=== PATIENT | male | born 1970 | race African-American/Black ===

== ENCOUNTER 2018-08-18 13:48 | Inpatient (IN) ==
[2018-08-18] MEDS ORDERED: Ketorolac Inj 30 MG/ML (IVP) Vial IV.PUSH ONE (15:39)
--- NOTE | 2018-08-18 15:55 | ED ---
HPI General Chief complaint: Skin/Abscess/Foreign Body Stated complaint: Groin Area complaint Time Seen by Provider: 08/18/18 14:45 Source: patient Mode of arrival: ambulatory Limitations: no limitations History of Present Illness HPI narrative: 48-year-old male presents to the emergency department with complaint of an abscess to his lower abdomen that started out at the beginning of the week and has worsened over the past 2 days. Denies drainage. Denies fever, vomiting, abdominal pain. Has history of abscesses. Says he is in no pain. Has taken Tylenol for symptom management. No other treatments tried. No known aggravating or relieving factors. Denies significant past medical history. No primary care provider. Denies allergies. Has no other medical complaints. No other modifying factors or associated signs and symptoms. Related Data Home Medications Medication Instructions Recorded Confirmed No Known Home Medications 08/18/18 08/18/18 Previous Rx's Medication Instructions Recorded clindamycin HCl 600 mg PO BID 10 Days #40 cap 08/20/18 doxycycline hyclate 100 mg PO BID 10 Days #40 tab 08/20/18 metformin 500 mg PO DAILY 30 Days #30 tab 08/20/18 Allergies Allergy/AdvReac Type Severity Reaction Status Date / Time No Known Allergies Allergy Verified 08/18/18 13:57 Review of Systems ROS: all other systems reviewed are negative [facility] Medical History Medical History HTN (hypertension) (Acute) Social History Social History Substance History: Active Abuse Second Hand Smoke Exposure: No Smoking Status: Never smoker How Often Do You Have a Drink Containing Alcohol: Monthly or less Recent Travel in [facility] within the Last 8 Weeks: No Recent Out of Country Travel within the Last 8 Weeks: No Immunization History Tetanus Immunization: Unsure Exam Narrative Exam Narrative: GENERAL: Well-nourished, well-developed black male patient, in no acute distress; afebrile, nontoxic-appearing SKIN: There is an indurated area to the lower mid abdomen/pelvic region which measures about 9 cm in diameter. There is approximately a 1 cm area of fluctuance palpated and the rest is indurated. No drainage. HEAD: Atraumatic. Normocephalic. EYES: Pupils equal and round. No scleral icterus. No injection or drainage. ENT: Mucosa pink and moist. Airway patent. NECK: Trachea midline. CARDIOVASCULAR: Regular rate. RESPIRATORY: No accessory muscle use. GASTROINTESTINAL: Obese. MUSCULOSKELETAL: No obvious deformities. No clubbing. No cyanosis. No edema. NEUROLOGICAL: Awake and alert. Oriented 3. No obvious cranial nerve deficits. Motor grossly within normal limits. Normal speech. PSYCHIATRIC: Appropriate mood and affect; insight and judgment normal. Course Initial Documented Vital Signs Temperature 97.2 F L 08/18/18 13:54 Pulse Rate 92 H 08/18/18 13:54 Respiratory Rate 20 08/18/18 13:54 Blood Pressure 149/73 H 08/18/18 13:54 Pulse Oximetry 98 08/18/18 13:54 Last Documented Vital Signs Temperature 98.2 F 08/20/18 08:00 Pulse Rate 84 08/20/18 08:00 Respiratory Rate 20 08/20/18 08:00 Blood Pressure 151/74 H 08/20/18 08:00 Pulse Oximetry 96 08/20/18 08:00 Medical Decision Making NADJA Attestation NADJA supervised visit: Yes Attestation: I, Dr. Franco, have reviewed the advance practice practitioner's documentation and am in agreement, met with the patient face to face, made the diagnosis, and the medical decision making was done by me. *My assessment and Findings: abscess vs. cellulitis 48yo M with suprapubic pain and swelling for 1 week. There is an induration over pubic bone about 12 cm by 9cm. There is a small area of fluctuance on the superior area of the induration. No crepitus, no tenderness to palpation in bilateral testes. It is difficult the access what deep the infection is and due to the location of the infection, will obtain CT a/p with IV contrast. Denies any fever, chest pain, sob, n/v, abdominal pain, focal weakness or numbness. Labs reviewed, no leukocytosis. H/H normal. CT pending at this time. My GEOCHEMICAL LABORATORY TECHNICIAN will follow up on it and admit if there is any signs of abscess. [facility] Narrative Medical decision making narrative: 48-year-old male with large indurated abscess to the lower mid abdomen/pelvic region. Dr. Franco evaluated the patient and plan of care discussed. CT abdomen/pelvis, CBC, CMP, IV, Toradol ordered. 1747: CBC unremarkable. CMP unremarkable. 1806: CT abdomen/pelvis conclude: significant induration in the anterior body wall of the left pelvis. There does appear to be a small possible abscess tracking underneath the skin at the level of the beginning of the left pannus. Some surrounding reactive type lymph nodes. Discussed CT findings with the patient. Clindamycin 600 mg IV ordered. Call placed for admission. 182: I spoke with Dr. Royal, resident MD and report given for admission. Medical Screen Exam Complete: Yes Emergency Medical Condition: Yes Differential Diagnosis Differential Diagnosis: Abscess of skin of abdomen, Lab Data Result diagrams: 08/20/18 09:57 08/20/18 09:57 Lab Results 08/18/18 08/18/18 08/18/18 Range/Units 15:50 15:50 15:50 WBC 9.2 (4.0-11.0) th/mm3 RBC 4.57 (4.50-5.90) mil/mm3 Hgb 13.6 (13.0-17.0) gm/dL Hct 39.7 (39.0-51.0) % MCV 86.8 (80.0-100.0) fL MCH 29.7 (27.0-34.0) pg MCHC 34.2 (32.0-36.0) % RDW 14.1 (11.6-17.2) % Plt Count 267 (150-450) th/mm3 MPV 8.6 (7.0-11.0) fL Neut % (Auto) 68.7 (16.0-70.0) % Lymph % (Auto) 18.8 (9.0-44.0) % Gillespie % (Auto) 10.2 H (0.0-8.0) % Eos % (Auto) 1.7 (0.0-4.0) % Baso % (Auto) 0.6 (0.0-2.0) % Neut # (Auto) 6.3 (1.8-7.7) th/mm3 Lymph # (Auto) 1.7 (1.0-4.8) th/mm3 Gillespie # (Auto) 0.9 (0.0-0.9) th/mm3 Eos # (Auto) 0.2 (0.0-0.4) th/mm3 Baso # (Auto) 0.1 (0.0-0.2) th/mm3 WBC Differential . Differential Comment Auto diff final PT 11.1 (9.8-11.6) sec INR 1.1 Ratio APTT 29.5 (24.3-30.1) sec Sodium 135 L (136-145) meq/L Potassium 3.9 (3.5-5.1) meq/L Chloride 100 (98-107) meq/L Carbon Dioxide 28.8 (21.0-32.0) meq/L Anion Gap 6 (5-15) meq/L BUN 7 (7-18) mg/dL Creatinine 1.02 (0.60-1.30) mg/dL Estimated GFR Greater than 89 (>89) mL/min Random Glucose 90 (74-106) mg/dL Hemoglobin A1c (4.3-6.0) % Calcium 8.2 L (8.5-10.1) mg/dL Total Bilirubin 1.0 (0.2-1.0) mg/dL AST 19 (15-37) U/L ALT 34 (12-78) U/L Alkaline Phosphatase 109 (45-117) U/L Total Protein 8.5 H (6.4-8.2) g/dL Albumin 3.0 L (3.4-5.0) g/dL 08/19/18 08/19/18 08/20/18 Range/Units 07:04 07:04 09:57 WBC 9.6 (4.0-11.0) th/mm3 RBC 4.70 (4.50-5.90) mil/mm3 Hgb 13.8 (13.0-17.0) gm/dL Hct 41.9 (39.0-51.0) % MCV 89.3 (80.0-100.0) fL MCH 29.4 (27.0-34.0) pg MCHC 32.9 (32.0-36.0) % RDW 14.0 (11.6-17.2) % Plt Count 283 (150-450) th/mm3 MPV 8.7 (7.0-11.0) fL Neut % (Auto) 71.2 H (16.0-70.0) % Lymph % (Auto) 17.2 (9.0-44.0) % Gillespie % (Auto) 9.6 H (0.0-8.0) % Eos % (Auto) 1.7 (0.0-4.0) % Baso % (Auto) 0.3 (0.0-2.0) % Neut # (Auto) 6.8 (1.8-7.7) th/mm3 Lymph # (Auto) 1.6 (1.0-4.8) th/mm3 Gillespie # (Auto) 0.9 (0.0-0.9) th/mm3 Eos # (Auto) 0.2 (0.0-0.4) th/mm3 Baso # (Auto) 0.0 (0.0-0.2) th/mm3 WBC Differential . Differential Comment Auto diff final PT (9.8-11.6) sec INR Ratio APTT (24.3-30.1) sec Sodium 138 (136-145) meq/L Potassium 3.2 L (3.5-5.1) meq/L Chloride 101 (98-107) meq/L Carbon Dioxide 27.8 (21.0-32.0) meq/L Anion Gap 9 (5-15) meq/L BUN 8 (7-18) mg/dL Creatinine 0.93 (0.60-1.30) mg/dL Estimated GFR Greater than 89 (>89) mL/min Random Glucose 107 H (74-106) mg/dL Hemoglobin A1c 6.3 H (4.3-6.0) % Calcium 8.3 L (8.5-10.1) mg/dL Total Bilirubin 0.8 (0.2-1.0) mg/dL AST 18 (15-37) U/L ALT 35 (12-78) U/L Alkaline Phosphatase 107 (45-117) U/L Total Protein 8.1 (6.4-8.2) g/dL Albumin 2.9 L (3.4-5.0) g/dL 08/20/18 Range/Units 09:57 WBC (4.0-11.0) th/mm3 RBC (4.50-5.90) mil/mm3 Hgb (13.0-17.0) gm/dL Hct (39.0-51.0) % MCV (80.0-100.0) fL MCH (27.0-34.0) pg MCHC (32.0-36.0) % RDW (11.6-17.2) % Plt Count (150-450) th/mm3 MPV (7.0-11.0) fL Neut % (Auto) (16.0-70.0) % Lymph % (Auto) (9.0-44.0) % Gillespie % (Auto) (0.0-8.0) % Eos % (Auto) (0.0-4.0) % Baso % (Auto) (0.0-2.0) % Neut # (Auto) (1.8-7.7) th/mm3 Lymph # (Auto) (1.0-4.8) th/mm3 Gillespie # (Auto) (0.0-0.9) th/mm3 Eos # (Auto) (0.0-0.4) th/mm3 Baso # (Auto) (0.0-0.2) th/mm3 WBC Differential Differential Comment PT (9.8-11.6) sec INR Ratio APTT (24.3-30.1) sec Sodium 138 (136-145) meq/L Potassium 3.7 (3.5-5.1) meq/L Chloride 102 (98-107) meq/L Carbon Dioxide 28.1 (21.0-32.0) meq/L Anion Gap 8 (5-15) meq/L BUN 7 (7-18) mg/dL Creatinine 1.01 (0.60-1.30) mg/dL Estimated GFR Greater than 89 (>89) mL/min Random Glucose 116 H (74-106) mg/dL Hemoglobin A1c (4.3-6.0) % Calcium 8.4 L (8.5-10.1) mg/dL Total Bilirubin (0.2-1.0) mg/dL AST (15-37) U/L ALT (12-78) U/L Alkaline Phosphatase (45-117) U/L Total Protein (6.4-8.2) g/dL Albumin (3.4-5.0) g/dL Imaging Data Radiologist's impression: Abdomen/Pelvis CT 08/18/18 15:39 CONCLUSION: 1. Significant induration in the anterior body wall of the left pelvis. There does appear to be a small possible abscess tracking underneath the skin at the level of the beginning of the left pannus. Some surrounding reactive type lymph nodes. Discharge Plan Discharge Disposition Patient Disposition: 30 Still Patient Discharge Condition Condition: Stable Discharge Order Discharge Orders: Discharge Order (Routine); Ordered 08/20/18 Ordered By: Allyn Royal Discharge Details Anticipated Discharge Date: 08/20/18 Diagnosis: Abscess of pelvis Physicians Team ED Provider: Suzette Franco ED Midlevel Provider: Haley Ghosh Primary Care Provider: Primary Care Shyla Dutta Attending Provider: Andrea Gonzalez Status ED Status: Left Department Discharge Information Discharge Date/Time: 08/19/18 01:01
[2018-08-18 16:18] LABS: Baso # (Auto) 0.1 th/mm3 (0.0-0.2); Baso % (Auto) 0.6 % (0.0-2.0); Eos # (Auto) 0.2 th/mm3 (0.0-0.4); Eos % (Auto) 1.7 % (0.0-4.0); Hematocrit 39.7 % (39.0-51.0); Hemoglobin 13.6 gm/dL (13.0-17.0); Lymph # (Auto) 1.7 th/mm3 (1.0-4.8); Lymph % (Auto) 18.8 % (9.0-44.0); Mean Corpuscular HGB Conc 34.2 % (32.0-36.0); Mean Corpuscular Hemoglobin 29.7 pg (27.0-34.0); Mean Corpuscular Volume 86.8 fL (80.0-100.0); Mean Platelet Volume 8.6 fL (7.0-11.0); Mono # (Auto) 0.9 th/mm3 (0.0-0.9); Mono % (Auto) 10.2 % (0.0-8.0); Neut # (Auto) 6.3 th/mm3 (1.8-7.7); Neut % (Auto) 68.7 % (16.0-70.0); Platelet Count 267 th/mm3 (150-450); Red Blood Count 4.57 mil/mm3 (4.50-5.90); Red Cell Distribution Width 14.1 % (11.6-17.2); White Blood Count 9.2 th/mm3 (4.0-11.0)
[2018-08-18 16:27] LABS: Activated Partial Thrombo Time 29.5 sec (24.3-30.1); INR 1.1 Ratio; Prothrombin Time 11.1 sec (9.8-11.6)
[2018-08-18 16:36] LABS: Alkaline Phosphatase 109 U/L (45-117); Total Protein 8.5 g/dL (6.4-8.2)
[2018-08-18 16:41] LABS: Alanine Aminotransferase 34 U/L (12-78); Anion Gap 6 meq/L (5-15); Aspartate Aminotransferase 19 U/L (15-37); Blood Urea Nitrogen 7 mg/dL (7-18); Calcium 8.2 mg/dL (8.5-10.1); Carbon Dioxide 28.8 meq/L (21.0-32.0); Chloride 100 meq/L (98-107); Glomerular Filtration Rate Greater Than 89 mL/min (>89); Glucose,Random 90 mg/dL (74-106); Sodium 135 meq/L (136-145)
[2018-08-18 16:42] LABS: Potassium 3.9 meq/L (3.5-5.1)
--- NOTE | 2018-08-18 17:53 | CT ---
EXAM DATE: 08/18/2018 5:46 PM EDT AGE/SEX: 48 years / Male INDICATIONS: Low abdominal pain with possible abscess. CLINICAL DATA: This is the patient's initial encounter. Patient reports that signs and symptoms have been present for 1 day and indicates a pain score of 6/10. MEDICAL/SURGICAL HISTORY: Hypertension. None. ORAL CONTRAST: No oral contrast ingested. RADIATION DOSE: 39.88 CTD (mGy) ; Patient body habitus COMPARISON: [facility] [place], CT ABDOMEN & PELVIS W CONTRAST, 05/30/2018. . TECHNIQUE: Multiple contiguous axial images were obtained through the abdomen and pelvis following b olus infusion of 97 ml Omnipaque 350 (iohexol) nonionic water-soluble contrast as a single exam dos e. No oral contrast ingested. Using automated exposure control and adjustment of the mA and/or kV ac cording to patient size, radiation dose was kept as low as reasonably achievable to obtain optimal di agnostic quality images. DICOM format image data is available electronically for review and comparis on. FINDINGS: Lower Lungs: The visualized lower lungs are clear. Liver: The liver has a homogeneous density without space-occupying lesion. There is no dilation of th e biliary tree. Spleen: Homogeneous density without enlargement. Pancreas: Unremarkable without mass or calcification. Kidneys: Normal in size and shape. No evidence of mass or hydronephrosis. Adrenal Glands: Unremarkable. Aorta: The aorta and proximal iliac vessels are grossly unremarkable without aneurysmal dilation. Bowel/Mesentery: The bowel loops are grossly unremarkable. The cecum and sigmoid colon have a normal configuration. Abdominal Wall: There is an impressive amount of induration and swelling involving the anterior body wall in the left side of the pelvis. The induration measures 7.7 cm across. I do see a central drain able fluid collection measuring 2.7 cm across. It is directly deep to the skin at the bottom portion of the left pannus. There are numerous adjacent lymph nodes. The induration and swelling extends to t he anterior margin of the left rectus muscle but I don't see any definite muscular enlargement. The c ellulitis extends to the upper part of the scrotum. Retroperitoneum: No evidence of adenopathy in the Retrocrural, para-aortic, or deep pelvic regions. Bladder: Contours are smooth. Reproductive Organs: No abnormal masses or calcifications seen. Inguinal: The inguinal region is unremarkable without evidence of adenopathy. Bony Structures: Unremarkable. CONCLUSION: 1. Significant induration in the anterior body wall of the left pelvis. There does appear to be a sm all possible abscess tracking underneath the skin at the level of the beginning of the left pannus. S ome surrounding reactive type lymph nodes. Electronically signed by: Jorge Louis MD 08/18/2018 5:51 PM EDT
[2018-08-18] MEDS ORDERED: Clindamycin 600 mg/NS Premix 600 MG/50 ML PIGGYBACK IV.SIG SCH (18:15)
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
[2018-08-18] MEDS ORDERED: Bisacodyl 10 MG Supp RECTAL PRN (20:47)
[2018-08-19] MEDS: Acetaminophen 325 MG Tablet PO PRN ×3 (00:32→20:29)
[2018-08-19] MEDS: Clindamycin 900 mg/NS Premix 900 MG/50 ML PIGGYBACK IV.SIG SCH ×3 (01:17→17:46)
[2018-08-19] MEDS: Nystatin 100,000 UNITS/GM Powder 15 GM Bottle TOPICAL SCH ×5 (01:18→20:26)
[2018-08-19 08:10] LABS: Albumin 2.9 g/dL (3.4-5.0); Anion Gap 9 meq/L (5-15); Aspartate Aminotransferase 18 U/L (15-37); Blood Urea Nitrogen 8 mg/dL (7-18); Calcium 8.3 mg/dL (8.5-10.1); Carbon Dioxide 27.8 meq/L (21.0-32.0); Chloride 101 meq/L (98-107); Glomerular Filtration Rate Greater Than 89 mL/min (>89); Glucose,Random 107 mg/dL (74-106); Potassium 3.2 meq/L (3.5-5.1); Sodium 138 meq/L (136-145)
[2018-08-19 08:16] LABS: Alanine Aminotransferase 35 U/L (12-78); Alkaline Phosphatase 107 U/L (45-117); Total Protein 8.1 g/dL (6.4-8.2)
--- NOTE | 2018-08-19 11:06 | P.PNFP ---
Subjective Interval history: This is a 48 year old male admitted for cellulitis of anterior abdominal wall and posterior scalp. Patient seen and examined this morning with at bedside. Patient states that he is feeling much better this morning. He states that the infected areas are very itchy despite the nystatin powder, but otherwise are less painful and not as swollen compared to admission. Denies fever, chills, nausea, vomiting, diarrhea or rash. <Kami Tidwell - 08/19/18 11:07> Results - Labs Result diagrams: 08/18/18 15:50 08/19/18 07:04 <Andrea Gonzalez - 08/19/18 14:25> Abnormal lab results 08/18/18 08/18/18 08/19/18 Range/Units 15:50 15:50 07:04 [place] % (Auto) 10.2 H (0.0-8.0) % Sodium 135 L (136-145) meq/L Potassium 3.2 L (3.5-5.1) meq/L Random Glucose 107 H (74-106) mg/dL Calcium 8.2 L 8.3 L (8.5-10.1) mg/dL Total Protein 8.5 H (6.4-8.2) g/dL Albumin 3.0 L 2.9 L (3.4-5.0) g/dL Short CBC 08/18/18 Range/Units 15:50 WBC 9.2 (4.0-11.0) th/mm3 Hgb 13.6 (13.0-17.0) gm/dL Hct 39.7 (39.0-51.0) % Plt Count 267 (150-450) th/mm3 BMP 08/18/18 08/19/18 15:50 07:04 Sodium 135 L 138 Potassium 3.9 3.2 L Chloride 100 101 Carbon Dioxide 28.8 27.8 BUN 7 8 Creatinine 1.02 0.93 Calcium 8.2 L 8.3 L Liver Function 08/18/18 08/19/18 Range/Units 15:50 07:04 Total Bilirubin 1.0 0.8 (0.2-1.0) mg/dL AST 19 18 (15-37) U/L ALT 34 35 (12-78) U/L Alkaline Phosphatase 109 107 (45-117) U/L Albumin 3.0 L 2.9 L (3.4-5.0) g/dL <Andrea Gonzalez - 08/19/18 14:25> Abnormal lab results 08/18/18 08/18/18 08/19/18 Range/Units 15:50 15:50 07:04 [place] % (Auto) 10.2 H (0.0-8.0) % Sodium 135 L (136-145) meq/L Potassium 3.2 L (3.5-5.1) meq/L Random Glucose 107 H (74-106) mg/dL Calcium 8.2 L 8.3 L (8.5-10.1) mg/dL Total Protein 8.5 H (6.4-8.2) g/dL Albumin 3.0 L 2.9 L (3.4-5.0) g/dL Short CBC 08/18/18 Range/Units 15:50 WBC 9.2 (4.0-11.0) th/mm3 Hgb 13.6 (13.0-17.0) gm/dL Hct 39.7 (39.0-51.0) % Plt Count 267 (150-450) th/mm3 BMP 08/18/18 08/19/18 15:50 07:04 Sodium 135 L 138 Potassium 3.9 3.2 L Chloride 100 101 Carbon Dioxide 28.8 27.8 BUN 7 8 Creatinine 1.02 0.93 Calcium 8.2 L 8.3 L Liver Function 08/18/18 08/19/18 Range/Units 15:50 07:04 Total Bilirubin 1.0 0.8 (0.2-1.0) mg/dL AST 19 18 (15-37) U/L ALT 34 35 (12-78) U/L Alkaline Phosphatase 109 107 (45-117) U/L Albumin 3.0 L 2.9 L (3.4-5.0) g/dL <Kami Tidwell - 08/19/18 11:06> - Imaging Impressions Abdomen/Pelvis CT 08/18/18 15:39 CONCLUSION: 1. Significant induration in the anterior body wall of the left pelvis. There does appear to be a small possible abscess tracking underneath the skin at the level of the beginning of the left pannus. Some surrounding reactive type lymph nodes. <Andrea Gonzalez - 08/19/18 14:25> Impressions Abdomen/Pelvis CT 08/18/18 15:39 CONCLUSION: 1. Significant induration in the anterior body wall of the left pelvis. There does appear to be a small possible abscess tracking underneath the skin at the level of the beginning of the left pannus. Some surrounding reactive type lymph nodes. <Kami Tidwell - 08/19/18 11:06> Physical Exam Vital signs: Vital Signs 08/18/18 18:30 08/19/18 00:00 08/19/18 04:00 Temperature 98.2 F 98.1 F Pulse Rate 82 87 84 Respiratory Rate 16 16 16 Blood Pressure 141/82 H 163/92 H 158/90 H Pulse Oximetry 94 L 99 99 08/19/18 08:00 Temperature 98.6 F Pulse Rate 85 Respiratory Rate 20 Blood Pressure 137/80 Pulse Oximetry 97 Intake & Output 08/18/18 08/19/18 08/19/18 18:59 06:59 18:59 Intake Total 50 / 50 50 / 50 50 / 50 Balance 50 / 50 50 / 50 50 / 50 Weight 139 kg 138.6 kg Intake: IV 50 / 50 50 / 50 50 / 50 Cleocin 600 mg/NS Premix 600 mg 50 / 50 In 50 ml @ 100 mls/hr IV.SIG Q8H [facility] Rx#:[id number] Cleocin 900 mg/NS Premix 900 mg 50 / 50 50 / 50 In 50 ml @ 100 mls/hr IV.SIG Q8H [facility] Rx#:[id number] Other: Weight On Admission 139 kg <Andrea Gonzalez - 08/19/18 14:25> Vital Signs 08/18/18 13:54 08/18/18 18:30 08/19/18 00:00 Temperature 97.2 F L 98.2 F Pulse Rate 92 H 82 87 Respiratory Rate 20 16 16 Blood Pressure 149/73 H 141/82 H 163/92 H Pulse Oximetry 98 94 L 99 08/19/18 04:00 Temperature 98.1 F Pulse Rate 84 Respiratory Rate 16 Blood Pressure 158/90 H Pulse Oximetry 99 Intake & Output 08/18/18 08/19/18 08/19/18 18:59 06:59 18:59 Intake Total 50 / 50 50 / 50 Balance 50 / 50 50 / 50 Weight 139 kg 138.6 kg Intake: IV 50 / 50 50 / 50 Cleocin 600 mg/NS Premix 600 mg 50 / 50 In 50 ml @ 100 mls/hr IV.SIG Q8H [facility] Rx#:[id number] Cleocin 900 mg/NS Premix 900 mg 50 / 50 In 50 ml @ 100 mls/hr IV.SIG Q8H [facility] Rx#:[id number] Other: Weight On Admission 139 kg <Kami Tidwell 08/19/18 11:06> Narrative: GENERAL: Obese gentleman sitting up in bed comfortably. SKIN: 4x4 cm circular area of induration and redness at the back of the head in the lower occipital region. Area under the pannus is lichenified. A small white lesion about 2 cm in diameter is visible. Surrounding it, at the left lower abdomen bordering the groin region, there is a 8x6 cm area of induration. Surrounding swelling had receded from borders marked on admission. Two small vesicular legions are noted in the area as well. No notable erythema or drainage from the area. HEAD: Normocephalic. EYES: No scleral icterus. No injection or drainage. CARDIOVASCULAR: Regular rate and rhythm. RESPIRATORY: Breath sounds equal bilaterally. CTA. No accessory muscle use. GASTROINTESTINAL: Abdomen soft, obese, generally non-tender. Area under the pannus at the left side is tender to palpation. White nystatin powder residue over groin area. MUSCULOSKELETAL: No cyanosis. Slight edema at the ankles bilaterally. BACK: No skin lesions visualized. <Kami Tidwell 08/19/18 11:06> Assessment and Plan - Assessment (1) Cellulitis, pelvic Status: Acute Plan: Possible small abscess under the skin, associated w/reactive lymph nodes. S/p IV clinda 600 mg x1. Con't Clinda IV Q8H at dose of 900mg, consider switch to PO antibiotics tomorrow if patient's clinical presentation continues to improve. Tylenol PRN for pain Wound cx if site starts draining Monitor vitals (2) Pruritus of skin Code(s): L29.9 - Pruritus, unspecified Status: Acute Plan: Skin lichenification noted on physical Nystatin PRN to be applied under pannus. Benadryl PRN for itching (3) Morbid obesity Code(s): E66.01 - Morbid (severe) obesity due to excess calories Status: Acute Plan: Counseled on weight loss HbA1C pending states he has sleep apnea but he does not have a CPAP (4) Nutrition, metabolism, and development symptoms Code(s): R63.8 - Other symptoms and signs concerning food and fluid intake Status: Acute Plan: Fluids: None Electrolytes: none Nutrition: Reg diet (5) DVT prophylaxis Status: Acute Plan: SCDs Dispo: Possible after 48 hrs of IV abx and clinical improvement Discussed w/ED Dr. Ventura <Kami Tidwell - 08/19/18 11:07> - Assessment and Plan See the residents documentation for details. I saw and evaluated the patient regarding the freeman portions of this evaluation and agree with the residents findings and plans as written. Parts of this note were created using [employer] voice recognition software program. While efforts were made to correct any mistakes made by this software, some mistakes, errors, and omissions may remain in the final note that were not caught when the note was originally created. Plan of care was discussed and agreed upon with the patient as specifically documented in the above note. An opportunity to ask questions with explanation was provided. Patient voiced understanding on all information reviewed and discussed. <Andrea Gonzalez - 08/19/18 14:25>
[2018-08-19 17:11] LABS: Hemoglobin A1c 6.3 % (4.3-6.0)
[2018-08-20] MEDS: Clindamycin 900 mg/NS Premix 900 MG/50 ML PIGGYBACK IV.SIG SCH ×2 (01:25→10:30)
[2018-08-20 05:14] VITALS: O2SAT 96
[2018-08-20] MEDS: Nystatin 100,000 UNITS/GM Powder 15 GM Bottle TOPICAL SCH ×2 (08:29→13:54)
[2018-08-20] MEDS ORDERED: Lactobacillus Acidophilus/L. Spores Tablet PO SCH (09:00)
[2018-08-20 10:33] VITALS: BP 151/74; PULSE 84; RESP 20; TEMP 98.2
[2018-08-20 10:39] LABS: Baso % (Auto) 0.3 % (0.0-2.0); Eos # (Auto) 0.2 th/mm3 (0.0-0.4); Eos % (Auto) 1.7 % (0.0-4.0); Hematocrit 41.9 % (39.0-51.0); Hemoglobin 13.8 gm/dL (13.0-17.0); Lymph # (Auto) 1.6 th/mm3 (1.0-4.8); Lymph % (Auto) 17.2 % (9.0-44.0); Mean Corpuscular HGB Conc 32.9 % (32.0-36.0); Mean Corpuscular Hemoglobin 29.4 pg (27.0-34.0); Mean Corpuscular Volume 89.3 fL (80.0-100.0); Mean Platelet Volume 8.7 fL (7.0-11.0); Mono # (Auto) 0.9 th/mm3 (0.0-0.9); Mono % (Auto) 9.6 % (0.0-8.0); Neut # (Auto) 6.8 th/mm3 (1.8-7.7); Neut % (Auto) 71.2 % (16.0-70.0); Platelet Count 283 th/mm3 (150-450); White Blood Count 9.6 th/mm3 (4.0-11.0)
[2018-08-20 10:48] LABS: Anion Gap 8 meq/L (5-15); Blood Urea Nitrogen 7 mg/dL (7-18); Calcium 8.4 mg/dL (8.5-10.1); Carbon Dioxide 28.1 meq/L (21.0-32.0); Chloride 102 meq/L (98-107); Glomerular Filtration Rate Greater Than 89 mL/min (>89); Glucose,Random 116 mg/dL (74-106); Potassium 3.7 meq/L (3.5-5.1)
[2018-08-20 10:51] LABS: Sodium 138 meq/L (136-145)
--- NOTE | 2018-08-20 11:20 | P.PNFP ---
Subjective Interval history: Patient seen and examined this morning. He states that he is feeling well and would like to return home. He states that the area of cellulitis on his posterior scalp and anterior groin area are not particularly painful. The nystatin powder has been helping with the itching. Denies fever, chills, bleeding or drainage from the affected areas, chest pain, shortness of breath, leg pain or swelling. Discussed plan with patient and family to switch to antibiotics by mouth and follow-up with patient in 1 [facility] at the [facility]. They voiced understanding and agreement with plan. <Kami Tidwell - 08/20/18 12:26> Results - Labs Result diagrams: 08/20/18 09:57 08/20/18 09:57 <Andrea Gonzalez - 08/21/18 11:40> Abnormal lab results 08/19/18 08/20/18 08/20/18 Range/Units 07:04 09:57 09:57 Neut % (Auto) 71.2 H (16.0-70.0) % [place] % (Auto) 9.6 H (0.0-8.0) % Random Glucose 116 H (74-106) mg/dL Hemoglobin A1c 6.3 H (4.3-6.0) % Calcium 8.4 L (8.5-10.1) mg/dL Short CBC 08/20/18 Range/Units 09:57 WBC 9.6 (4.0-11.0) th/mm3 Hgb 13.8 (13.0-17.0) gm/dL Hct 41.9 (39.0-51.0) % Plt Count 283 (150-450) th/mm3 BMP 08/20/18 09:57 Sodium 138 Potassium 3.7 Chloride 102 Carbon Dioxide 28.1 BUN 7 Creatinine 1.01 Calcium 8.4 L <Kami Tidwell - 08/20/18 11:20> Physical Exam Vital signs: Intake & Output 08/20/18 08/21/18 08/21/18 18:59 06:59 18:59 Intake Total 50 / 50 Balance 50 / 50 Intake: IV 50 / 50 Cleocin 900 mg/NS Premix 900 mg 50 / 50 In 50 ml @ 100 mls/hr IV.SIG Q8H [facility] Rx#:[id number] Other: Date of Last Bowel Movement 08/20/18 <Andrea Gonzalez - 08/21/18 11:40> Vital Signs 08/19/18 12:00 08/19/18 16:00 08/19/18 20:00 Temperature 97.4 F L 98.4 F 101.4 F H Pulse Rate 89 85 98 H Respiratory Rate 20 20 20 Blood Pressure 140/80 182/94 H 164/97 H Pulse Oximetry 96 98 98 08/20/18 00:00 08/20/18 04:00 08/20/18 08:00 Temperature 98.8 F 98.1 F 98.2 F Pulse Rate 88 91 H 84 Respiratory Rate 19 18 20 Blood Pressure 150/79 H 157/88 H 151/74 H Pulse Oximetry 95 96 96 Intake & Output 08/19/18 08/20/18 08/20/18 18:59 06:59 18:59 Intake Total 580 / 580 1050 / 1050 50 / 50 Balance 580 / 580 1050 / 1050 50 / 50 Weight 138.9 kg Intake: IV 100 / 100 50 / 50 50 / 50 Cleocin 900 mg/NS Premix 900 mg 100 / 100 50 / 50 50 / 50 In 50 ml @ 100 mls/hr IV.SIG Q8H [facility] Rx#:[id number] Oral 480 / 480 1000 / 1000 Other: # Voids 2 4 # Bowel Movements 1 1 <YawKami Tidwell - 08/20/18 11:20> Narrative: GENERAL: Obese gentleman sitting up in bed comfortably. SKIN: 4x4 cm circular area of induration and redness at the back of the head in the lower occipital region. Area under the pannus is lichenified. A small white lesion about 2 cm in diameter is visible. Surrounding it, at the left lower abdomen bordering the groin region, there is a 8x6 cm area of induration. Surrounding swelling had receded from borders marked on admission. Two small vesicular legions are noted in the area as well. No notable erythema or drainage from the area. HEAD: Normocephalic. EYES: No scleral icterus. No injection or drainage. CARDIOVASCULAR: Regular rate and rhythm. RESPIRATORY: Breath sounds equal bilaterally. CTA. No accessory muscle use. GASTROINTESTINAL: Abdomen soft, obese, generally non-tender. Area under the pannus at the left side is tender to palpation. Nystatin powder residue over groin area. MUSCULOSKELETAL: No cyanosis. Slight edema at the ankles bilaterally. BACK: No skin lesions visualized. <Kami Tidwell - 08/20/18 12:26> Assessment and Plan - Assessment (1) Cellulitis, pelvic Status: Acute Plan: Possible small abscess under the skin, associated w/reactive lymph nodes. S/p IV clinda 600 mg x1. Plan to switch from Clindamycin IV to Clindamycin PO and Doxycycline PO in preparation for discharge today. Patient to be followed up with [facility] after discharge from the hospital. Will evaluate infected areas and determine if I&D is appropriate at that time. (2) Pruritus of skin Code(s): L29.9 - Pruritus, unspecified Status: Acute Plan: Skin lichenification noted on physical Nystatin PRN to be applied under pannus. Benadryl PRN for itching (3) Pre-diabetes Code(s): R73.03 - Prediabetes Status: Acute Plan: HbA1C 6.3%, which is mildly elevated. To start metformin 500 mg daily on discharge. (4) Morbid obesity Code(s): E66.01 - Morbid (severe) obesity due to excess calories Status: Acute Plan: Counseled on weight loss. states he has sleep apnea but he does not have a CPAP (5) Nutrition, metabolism, and development symptoms Code(s): R63.8 - Other symptoms and signs concerning food and fluid intake Status: Acute Plan: Fluids: None Electrolytes: none Nutrition: Reg diet (6) DVT prophylaxis Status: Acute Plan: SCDs Dispo: Possible after 48 hrs of IV abx and clinical improvement Discussed w/ED Dr. Ventura <Kami Tidwell - 08/20/18 12:17> - Assessment and Plan See the residents documentation for details. I saw and evaluated the patient regarding the freeman portions of this evaluation and agree with the residents findings and plans as written. Parts of this note were created using [employer] voice recognition software program. While efforts were made to correct any mistakes made by this software, some mistakes, errors, and omissions may remain in the final note that were not caught when the note was originally created. Plan of care was discussed and agreed upon with the patient as specifically documented in the above note. An opportunity to ask questions with explanation was provided. Patient voiced understanding on all information reviewed and discussed. <Kami Tidwell - 08/20/18 11:20> - Attending Attestation See the residents documentation for details. I saw and evaluated the patient regarding the freeman portions of this evaluation and agree with the residents findings and plans as written. Parts of this note were created using [employer] voice recognition software program. While efforts were made to correct any mistakes made by this software, some mistakes, errors, and omissions may remain in the final note that were not caught when the note was originally created. Plan of care was discussed and agreed upon with the patient as specifically documented in the above note. An opportunity to ask questions with explanation was provided. Patient voiced understanding on all information reviewed and discussed. <Andrea Gonzalez - 08/21/18 11:40>
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
== END 2018-08-20 13:53 | disposition home or self-care (01) ==
LOC: NEPD 13:48 → NEDA 18:31 → N04 22:37
PROVIDERS: ADMIT Family Medicine; ATTEND Family Medicine